=== PATIENT | male | born 1975 | race Two or more races ===

== ENCOUNTER 2018-11-22 19:44 | Emergency (ER) | payer SELFPAY ==
[2018-11-22] MEDS ORDERED: LIDOCAINE 2% VISCOUS SOLN 20 ML UDCUP PO ONE ×2 (23:10→23:13)
[2018-11-22] MEDS ORDERED: IBUPROFEN 600 MG TABLET PO ONE (23:11)
--- NOTE | 2018-11-22 23:19 | ER Document Report ---
HPI - HPI Patient complains to provider of: Tooth pain Time Seen by Provider: 11/22/18 23:10 Pain Level: 5 Context: Parker 42-year-old male presents to the emergency department for pain in the #18 tooth. He said he broke the tooth about 1 year ago and has not had any problems until last night when he said he suddenly developed acute severe pain that radiates to his left ear and into his jaw. He rates the pain is 5 out of 5. He denies any fevers, complains of chills secondary to pain, denies any foul taste in his mouth, complains of left ear pain. Patient has no other symptoms - RESPIRATORY Respiratory: DENIES: Coughing Past Medical History - General Information source: Patient - Social History Smoking Status: Smoker,Current Status Unk Family History: Reviewed & Not Pertinent Patient has suicidal ideation: No Patient has homicidal ideation: No Renal/ Medical History: Denies: Hx Peritoneal Dialysis Vertical Provider Document - HEENT Mouth Diagram: 1 - Broken tooth. No erythema, no fluctuant area noted, no purulent discharge, no evidence of gingivitis, tenderness to palpation over soft tissue. Course - Re-evaluation Re-evalutation: 11/22/18 23:17 Park[place] 42-year-old male presents with pain of #18 tooth. He states he broke a year ago and then last night developed acute sudden severe pain. He does have dental insurance any is unable to get to the dentist until Sunday. Physical exam was remarkable for a break of the #18 tooth. No evidence of gingivitis or any inflammation in the gums. No fluctuant area to be concern for an abscess. No purulent discharge. I recommended that he see if there is any emergency dental services that are available over the weekend. Plan is to give him ibuprofen 600 mg 1 time and some topical viscous lidocaine that can he can use for brief periods of temporary relief. 11/22/18 23:20 - Vital Signs Vital signs: Temp Pulse Resp BP Pulse Ox 98.2 F 105 H 18 191/111 H 95 11/22/18 20:02 11/22/18 20:02 11/22/18 20:02 11/22/18 20:02 11/22/18 20:02 Discharge - Discharge Clinical Impression: Tooth pain Condition: Good Disposition: HOME, SELF-CARE Additional Instructions: Toothache Your pain is due to a broken tooth and potentially an early infection. Physical exam did not show any evidence of an infection at this time. The tooth must be repaired in order for you to feel better. As you know definitive treatment requires seeing your dentist. Severe swelling or drainage around a tooth usually means a deep dental abscess. This also requires evaluation and treatment by the dentist, but antibiotics may be prescribed while awaiting dental treatment. You should be rechecked immediately if you develop major swelling of the face, increasing pain, a lump in the jaw or gums, headache, or fever.
[2018-11-22 23:55] VITALS: BP 164/98
== END 2018-11-22 23:55 | disposition home or self-care (01) ==
LOC: ER 19:44
DX: K08.89 Other specified disorders of teeth and supporting structures (principal); R68.83 Chills (without fever)
CPT/HCPCS: 99282; J3490